=== PATIENT | female | born 1980 | race Caucasian/White ===

== ENCOUNTER 2019-12-13 16:27 | Emergency (ER) | payer BC ==
[2019-12-13] MEDS ORDERED: Sodium Chloride 0.9% 10 ML Syringe FLUSH PRN (16:46)
[2019-12-13] MEDS ORDERED: Sodium Chloride 0.9% 1,000 ML IV ONE (16:47)
--- NOTE | 2019-12-13 17:42 | EDM.PDOC ---
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 Patient states that this last , she took a test at home and this was positive, she did follow-up in clinic on Wednesday with Dr. Bravo, and had , and they states that she was around 6 and half weeks . She did not have an ultrasound done at that time. Assessed after that it seems as if she developed some vaginal spotting/bleeding , and has been worsening today. She does note some pretty intense abdomen cramps, and she has been going through multiple pads hourly, she states she is feeling lightheaded and dizzy due to this. This is her third , she did have 2 other pregnancies that were viable, so she would be a G3, P2. Patient notes that the bleeding started last night and she is bleeding roughly through 2 pads per hour. Patient notes that her blood type is B+. Patient states she did take a dose of Motrin last night, for the pain but this did not seem to provide much pain relief. Pelvic Pain Score (Numeric/FACES): 10 - Related Data Allergies Allergy/AdvReac Type Severity Reaction Status Date / Time No Known Allergies Allergy Verified 12/13/19 16:45 Home Meds: Home Meds Acetaminophen/oxyCODONE [Percocet 325-5 MG] 1 each PO Q6H PRN #12 tab 12/13/19 [ Rx] Past Medical History [employer] History: Reports: : 3 Para: 2 Social & Family History - Family History Family Medical History: Noncontributory ED ROS GENERAL - Review of Systems Review Of Systems: Comprehensive ROS is negative, except as noted in HPI. ED EXAM - Physical Exam Exam: See Below Exam Limited By: No Limitations General Appearance: Alert, WD/WN, No Apparent Distress Eye Exam: Bilateral Eye: EOMI, Normal Inspection, PERRL Ears: Normal External Exam Nose: Normal Inspection Throat/Mouth: Normal Inspection, Normal Lips, Normal Teeth, Normal Gums, Normal Oropharynx, Normal Voice, No Airway Compromise Head: Atraumatic, Normocephalic Neck: Normal Inspection Respiratory/Chest: No Respiratory Distress, Lungs Clear, Normal Breath Sounds, No Accessory Muscle Use, Chest Non-Tender Cardiovascular: Normal Peripheral Pulses, Regular Rate, Rhythm, No Murmur GI/Abdominal Exam: Normal Bowel Sounds, Soft, No Distention, No Mass, Tender ( suprapubically) (Female) Exam: Normal External Exam, Vaginal Bleeding (hard to visualize anatomic structures d/t blood present pt does have midline tenderness with bimanual exam) Heart Tones: No: Not Carver Movement: Not Appreciated Extremities: Normal Inspection, Normal Capillary Refill Neurological: Alert, Oriented, Normal Cognition, No Motor/Sensory Deficits Psychiatric: Normal Affect, Normal Mood Skin Exam: Warm, Dry, Intact, Normal Color, No Rash Course - Vital Signs Last Recorded V/S: Last Vital Signs Temp 98.1 F 12/13/19 16:42 Pulse 72 12/13/19 16:42 Resp 16 12/13/19 16:42 BP 131/71 12/13/19 16:42 Pulse Ox 96 12/13/19 16:42 - Orders/Labs/Meds Orders: Active Orders 24 hr Category Date Time Status Peripheral IV Care [RC] . DIRECTED Care 12/13/19 16:47 Active Sodium Chloride 0.9% [Saline Flush] Med 12/13/19 16:46 Active 10 ml FLUSH ASDIRECTED PRN Peripheral IV Insertion Adult [OM.PC] Stat Oth 12/13/19 16:46 Ordered Medication Orders Sodium Chloride (Saline Flush) 10 ml FLUSH ASDIRECTED PRN PRN Reason: Keep Vein Open Last Admin: 12/13/19 18:06 Dose: 10 ml Labs: Laboratory Tests 12/13/19 12/13/19 12/13/19 Range/Units 17:44 17:44 17:44 WBC 9.00 (3.98-10.04) K/mm3 RBC 3.82 L (3.98-5.22) M/mm3 Hgb 12.2 (11.2-15.7) gm/dl Hct 35.9 (34.1-44.9) % MCV 94.0 (79.4-94.8) fl MCH 31.9 (25.6-32.2) pg MCHC 34.0 (32.2-35.5) g/dl RDW Std Deviation 39.8 (36.4-46.3) fL Plt Count 256 (182-369) K/mm3 MPV 9.6 (9.4-12.3) fl Neut % (Auto) 77.6 H (34.0-71.1) % Lymph % (Auto) 12.1 L (19.3-51.7) % Haskell % (Auto) 8.3 (4.7-12.5) % Eos % (Auto) 1.7 (0.7-5.8) Baso % (Auto) 0.2 (0.1-1.2) % Neut # (Auto) 6.98 H (1.56-6.13) K/mm3 Lymph # (Auto) 1.09 L (1.18-3.74) K/mm3 Haskell # (Auto) 0.75 H (0.24-0.36) K/mm3 Eos # (Auto) 0.15 (0.04-0.36) K/mm3 Baso # (Auto) 0.02 (0.01-0.08) K/mm3 HCG, Quant 5600.0 mIU/mL Blood Type B POSITIVE Gel Antibody Screen Negative Meds: Medications Generic Name Dose Route Start Last Admin Trade Name Freq PRN Reason Stop Dose Admin Sodium Chloride 10 ml 12/13/19 16:46 12/13/19 18:06 Saline Flush FLUSH 10 ml ASDIRECTED PRN Administration Keep Vein Open Discontinued Medications Generic Name Dose Route Start Last Admin Trade Name Freq PRN Reason Stop Dose Admin Sodium Chloride 1,000 mls @ 999 mls/hr 12/13/19 16:47 12/13/19 17:56 Normal Saline IV 12/13/19 17:47 999 mls/hr ONETIME ONE Administration - Re-Assessments/Exams Free Text/Narrative Re-Assessment/Exam: 12/13/19 17:41 Patient presents to the ED for the evaluation of her vaginal bleeding and . She will have an IV placed with some IV fluids, CBC, quantitative hCG, type and screen and a transvaginal ultrasound for evaluation of the . Patient states she has passed lots of clots, and is wondering if she did not pass the tissue already. Ultrasound is done, but read is pending at this time. Patient states that her pain comes and goes, and is not requesting anything for pain meds at this time. 12/13/19 18:17 Ultrasound demonstrates a small gestational sac, that is intrauterine at this time. Small pole seen which shows a slightly irregular heart rate. Age of is around 5 weeks 6 days on this ultrasound. There is also a corpus luteum cyst seen on the left ovary measuring 2 cm, and a questionable fibroid in a subserosal location measuring up to 7.2 cm. Radiologist recommends a repeat study in 11 days if the patient does not miscarry in the meantime. 12/13/19 18:54 Patient's hCG level is 5600 at this time, hemoglobin is within normal limits. Patient has received a liter of fluids in the ER, I will await to confirm that her blood type is be positive before we discharge her home. It does appear as if there is an inevitable miscarriage. Will have her repeat her hCG level on Wednesday if she does not miscarry in the meantime. We will give her strict precautions for return and management. Departure - Departure Time of Disposition: 18:55 Disposition: Home, Self-Care 01 Condition: Fair Clinical Impression: Inevitable spontaneous - Discharge Information *PRESCRIPTION DRUG MONITORING PROGRAM REVIEWED*: Yes *COPY OF PRESCRIPTION DRUG MONITORING REPORT IN PATIENT OLIVE: No Prescriptions: Acetaminophen/oxyCODONE [Percocet 325-5 MG] 1 each PO Q6H PRN #12 tab PRN Reason: Pain Instructions: Miscarriage, [id number] Referrals: Yara Bravo MD [Primary Care Provider] - Forms: ED Department Discharge, ED Return to Work/School Form Additional Instructions: You were evaluated in the ER today regarding your abdominal pain/vaginal bleeding in . You did have some labs drawn, your Hemoglobin was within normal limits, your hCG level was 5600, your blood type is B+. Your ultrasound demonstrated an intrauterine , with irregular heart rate. Due to the amount of bleeding and cramping you are having, it is likely you are having a spontaneous miscarriage. You were given some IV fluids in the ER today. You will continue to bleed a little bit heavier over the next 24 to 48 hours, but this should lighten with time. Please increase your fluid intake at home, drink lots of Gatorade/Powerade or Pedialyte. You were given some tablets of Percocet for pain management, please take 1-2 tabs every 6 hours as needed for further cramping/pain. Recommend that you do not lift anything heavier than a gallon of milk (5 lbs), do not engage in sexual activities, try to get as much pelvic rest as possible for the next few days. Please try not to exert yourself, rest and relax, and take it easy. If you are bleeding through more than 1-2 maxi pads every couple hours, this would be cause for concern to return to the ER for immediate management. Recommend you call your [employer] tomorrow for further management, and a possible repeat hCG level on Wednesday. Please return to the ED at any time if your symptoms change or worsen. Sepsis Event Note - Evaluation Sepsis Screening Result: No Definite Risk - Focused Exam Vital Signs: Vital Signs Temp Pulse Resp BP Pulse Ox 12/13/19 16:42 98.1 F 72 16 131/71 96 Date Exam was Performed: 12/13/19 Time Exam was Performed: 20:09 - My Orders Last 24 Hours: My Active Orders 12/13/19 16:46 Sodium Chloride 0.9% [Saline Flush] 10 ml FLUSH ASDIRECTED PRN Peripheral IV Insertion Adult [OM.PC] Stat 12/13/19 16:47 Peripheral IV Care [RC] . DIRECTED - Assessment/Plan Last 24 Hours: My Active Orders 12/13/19 16:46 Sodium Chloride 0.9% [Saline Flush] 10 ml FLUSH ASDIRECTED PRN Peripheral IV Insertion Adult [OM.PC] Stat 12/13/19 16:47 Peripheral IV Care [RC] . DIRECTED
--- NOTE | 2019-12-13 18:05 | US ---
First trimester obstetrical ultrasound: Multiple real-time images were obtained transvaginally. Comparison: No previous studies of current . Small amount of fluid within the endocervical canal is seen presumably due to blood. Small intrauterine gestational sac is seen. Yolk sac is noted. Small pole is seen which shows a slightly irregular heart rate. Age of is around 5 weeks 6 days Corpus luteum cyst is seen on left ovary measuring 2.0 cm. Right ovary appears normal. Questionable fibroid seen in a subserosal location measuring up to 7.2 cm. Small amount of fluid seen within the cul-de-sac believed to be physiologic. Impression: 1. Small gestational sac as noted above. 2. Questionable subserosal fibroid. 3. Small amount of blood within the endocervical canal. If patient does not miscarry, recommend repeat study in 11 days. Diagnostic code #3 Study was dictated in MDT
== END 2019-12-13 20:09 | disposition home or self-care (01) ==
LOC: JD.ED 16:27
DX: O03.9 Complete or unspecified spontaneous abortion without complication (principal)
CPT/HCPCS: 36415; 76817; 84702; 85025; 86850; 86900; 86901; 96360; 99284; J7030

== ENCOUNTER 2022-04-21 06:41 | Inpatient (IN) | payer BC ==
[~2022-04-21 06:41] MED LIST: Lactated Ringers 1,000 ML IV SCH; Lidocaine 1%/Sod Bicarbonate in NS 8.4% 1 ML Syringe IDERM PRN; Sodium Chloride 0.9% 10 ML Syringe FLUSH PRN
[2022-04-21] MEDS ORDERED: Scopolamine 1.5 MG Transdermal Patch TOP ONE ×2 (07:30→07:45)
[2022-04-21] MEDS ORDERED: Propofol 200 MG/20 ML SDV ONE (07:32)
[2022-04-21] MEDS ORDERED: fentaNYL 100 MCG/2 ML SDV ONE (07:32)
[2022-04-21] MEDS ORDERED: Midazolam 1 MG/ML 2 ML SDV ONE (07:32)
[2022-04-21] MEDS ORDERED: Lidocaine 1% 4 ML ONE (07:33)
[2022-04-21] MEDS ORDERED: Rocuronium 50 MG/5 ML Vial ONE ×2 (07:34→07:35)
[2022-04-21] MEDS ORDERED: ceFAZolin 2 GM Vial ONE (07:55)
[2022-04-21] MEDS ORDERED: Neostigmine Methylsulfate 10 MG/10 ML MDV ONE (08:08)
[2022-04-21] MEDS ORDERED: Dexamethasone 4 MG/ML 5 ML MDV ONE (08:08)
[2022-04-21] MEDS ORDERED: Ketorolac 30 MG/ML SDV ONE (08:08)
[2022-04-21] MEDS ORDERED: diphenhydrAMINE 50 MG/ML SDV ONE (08:08)
[2022-04-21] MEDS ORDERED: Ondansetron 4 MG/2 ML SDV ONE (08:08)
[2022-04-21] MEDS ORDERED: HYDROmorphone 0.5 MG/0.5 ML Syringe ONE ×2 (08:12→08:44)
[2022-04-21] MEDS ORDERED: Lactated Ringers 1,000 ML ONE ×2 (08:12→08:53)
[2022-04-21] MEDS: Bupivacaine 0.5% 30 ML SDV ONE ×2 (08:13→09:35)
[2022-04-21] MEDS ORDERED: ePHEDrine 50 MG/ML SDV ONE (08:20)
[2022-04-21] MEDS ORDERED: Ondansetron 4 MG/2 ML SDV IVPUSH PRN (08:28)
[2022-04-21] MEDS ORDERED: HYDROmorphone 0.5 MG/0.5 ML Syringe IVPUSH PRN (08:28)
[2022-04-21] MEDS ORDERED: fentaNYL 100 MCG/2 ML SDV IVPUSH PRN (08:28)
[2022-04-21] MEDS ORDERED: Ketamine 500 mg/10 ML MDV ONE (08:44)
[2022-04-21] MEDS ORDERED: Docusate Sodium 100 MG Cap PO PRN (11:23)
[2022-04-21] MEDS ORDERED: Acetaminophen/oxyCODONE 325-5 MG Tab PO PRN ×2 (11:23)
[2022-04-21] MEDS: Sodium Chloride 0.9% 10 ML Syringe FLUSH SCH (11:31)
[2022-04-21] MEDS: Morphine 2 MG/ML SYRINGE IVPUSH PRN ×5 (11:56→23:18)
[2022-04-21] MEDS: Lactated Ringers 1,000 ML IV SCH ×3 (11:58→21:11)
[2022-04-21] MEDS: Ketorolac 30 MG/ML SDV IVPUSH SCH (15:58)
[2022-04-21] MEDS: Ondansetron 4 MG/2 ML SDV IVPUSH PRN ×2 (15:58→21:12)
[2022-04-21] MEDS ORDERED: Simethicone 80 MG Tab.Chew PO PRN (16:41)
[2022-04-22] MEDS: Metoclopramide 10 MG/2 ML SDV IVPUSH PRN (00:15)
[2022-04-22] MEDS: Ketorolac 30 MG/ML SDV IVPUSH SCH ×2 (00:16→07:53)
[2022-04-22] MEDS: Morphine 2 MG/ML SYRINGE IVPUSH PRN ×2 (02:46→05:32)
[2022-04-22] MEDS ORDERED: Acetaminophen 325 MG Tab PO PRN (12:09)
[2022-04-22] MEDS ORDERED: Ibuprofen 600 MG Tab PO PRN (14:00)
[2022-04-22] MEDS ORDERED: Acetaminophen/Codeine 300-30 MG Tab PO PRN ×2 (18:58→19:26)
[2022-04-22] MEDS: Acetaminophen/Codeine 300-30 MG Tab PO PRN (20:22)
[2022-04-22] MEDS: Ondansetron 4 MG/2 ML SDV IVPUSH PRN (20:26)
[2022-04-23] MEDS: Metoclopramide 10 MG/2 ML SDV IVPUSH PRN (08:26)
[2022-04-23] MEDS: Acetaminophen/Codeine 300-30 MG Tab PO PRN (08:30)
== END 2022-04-23 10:13 | disposition home or self-care (01) | DRG 519 ==
LOC: JD.OB 06:41 → JD.MS 20:07
PROVIDERS: ADMIT Obstetrics & Gynecology; ATTEND Obstetrics & Gynecology
PROC: 0UT90ZZ Resection of Uterus, Open Approach (ICD-10-PCS; principal; 2022-04-21)
PROC: 0UT70ZZ Resection of Bilateral Fallopian Tubes, Open Approach (ICD-10-PCS; 2022-04-21)
DX: D25.9 Leiomyoma of uterus, unspecified (principal); F32.A Depression, unspecified; Z79.1 Long term (current) use of non-steroidal anti-inflammatories (NSAID); Z79.899 Other long term (current) drug therapy; Z85.038 Personal history of other malignant neoplasm of large intestine; Z90.89 Acquired absence of other organs; Z98.890 Other specified postprocedural states
CPT/HCPCS: 00840; 36415; 80048; 81025; 85027; 86850; 86900; 86901; A9270-GY; J0690; J1100; J1170; J1200; J1885; J2250; J2270; J2405; J2704; J2710; J2765; J3010; J3490; J7120